=== PATIENT | female | born 1995 | race Caucasian/White ===

== ENCOUNTER 2017-01-16 21:37 | Emergency (ER) | payer OTHER ==
[~2017-01-16] VITALS: Ht 167.6 cm; Wt 104.3 kg
[2017-01-16] MEDS ORDERED: Flovent 220 M220 MCG INH (21:43)
[2017-01-16] MEDS ORDERED: SINGULAIR10 M1 PO (21:44)
[2017-01-16] MEDS ORDERED: FLONASE ALLERG9.9 ML NAS (21:44)
[2017-01-16] MEDS ORDERED: BIRTH CONTROL PO (21:45)
[2017-01-16] MEDS ORDERED: PREDNISONE10 MG PO (23:26)
[2017-01-16] MEDS ORDERED: DUONEB 3 MG/3 ML3 M1 INH (23:26)
[2017-01-16] MEDS ORDERED: NEBULIZER (23:27)
== END 2017-01-16 23:49 | disposition home or self-care (01) ==
LOC: ED 21:37
DX: J45.901 Unspecified asthma with (acute) exacerbation (principal); Z88.1 Allergy status to other antibiotic agents; Z88.2 Allergy status to sulfonamides

== ENCOUNTER 2024-06-04 19:16 | Emergency (ER) | payer BC ==
[~2024-06-04] VITALS: Ht 165.1 cm; Wt 98.4 kg
[~2024-06-04 19:16] MED LIST: BIRTH CONTROL PO; DUONEB 3 MG/3 ML3 M1 INH; FLONASE ALLERG9.9 ML NAS; Flovent 220 M220 MCG INH; NEBULIZER; PREDNISONE10 MG PO; SINGULAIR10 M1 PO
[2024-06-04] MEDS ORDERED: SODIUM CHLORIDE 0.9% 1,000 ML IV ONE (19:40)
[2024-06-04 19:51] LABS: BASO % 0.4 % (0.0-1.0); EOS # 0.5 10*3/uL (0.0-0.4); HEMATOCRIT 41.2 % (37.0-47.0); LYMPH # 1.9 10*3/uL (1.3-4.4); LYMPH % 19.7 % (27.0-41.0); MEAN CELL VOLUME 84.9 fl (81.0-99.0); MEAN CORPUSCULAR HGB 29.1 pg (27.0-31.0); MEAN CORPUSCULAR HGB CONC 34.2 g/dl (33.0-37.0); MEAN PLATELET VOLUME 11.6 fl (9.6-12.3); MONO % 10.1 % (3.0-9.0); NEUT # 6.1 10*3/uL (2.3-7.9); NEUT % 64.4 % (47.0-73.0); PLATELET COUNT AUTOMATED 300 10*3/uL (130-400); RED BLOOD COUNT 4.85 10*6/uL (4.10-5.10); RED CELL DISTRI WIDTH 12.6 % (0-14.5); WHITE BLOOD COUNT 9.5 10*3/uL (4.8-10.8)
[2024-06-04 20:08] LABS: ALKALINE PHOSPHATASE 72 U/L (46-116); BUN 13 mg/dl (9-23); CHLORIDE 105 mmol/L (98-107); LIPASE 30 U/L (12-53); POTASSIUM 3.3 mmol/L (3.4-5.1); SGPT/ALT 50 U/L (5-49); TOTAL PROTEIN 7.2 gm/dL (6.0-8.0)
[2024-06-04] MEDS ORDERED: diphenhydrAMINE hydrochloride 50 MG/ML VIAL IV ONE (20:40)
[2024-06-04] MEDS ORDERED: Metoclopramide Hydrochloride 10 MG/2 ML AMP IV ONE (20:40)
[2024-06-04 20:43] LABS: BILIRUBIN Negative (Negative); BLOOD Negative (Negative); CLARITY Clear (Clear); COLOR Yellow (Yellow); GLUCOSE Negative (Negative); KETONE 2+ (Negative); LEUKO ESTERASE Negative (Negative); NITRITE Negative (Negative); PH 5.5 (4.5-8.0); SPECIFIC GRAVITY >= 1.030 (1.001-1.030)
[2024-06-04 20:51] LABS: URINE AMPHETAMINES Negative (1000ng/ml); URINE BARBITURATES Negative (200ng/ml); URINE BENZODIAZEPINES Negative (200ng/ml); URINE CANNABINOIDS (THC) Negative (50ng/ml); URINE COCAINE Negative (300ng/ml); URINE METHADONE Negative (300ng/ml); URINE OPIATES Negative (300ng/ml); URINE PHENCYCLIDINE Negative (25ng/ml)
[2024-06-04 20:57] LABS: MUCOUS 1+
[2024-06-04] MEDS ORDERED: MAGNESIUM CITRATE 296 ML BOT PO ONE (22:30)
[2024-06-04] MEDS ORDERED: POTASSIUM CHLORIDE 20 MEQ TAB PO ONE (22:35)
[2024-06-04] MEDS ORDERED: MIRALAX POWDER17 G1 PO (22:35)
== END 2024-06-04 23:11 | disposition home or self-care (01) ==
LOC: ED 19:16
PROVIDERS: Internal Medicine
DX: K59.00 Constipation, unspecified (principal); R11.2 Nausea with vomiting, unspecified; R19.7 Diarrhea, unspecified; J45.909 Unspecified asthma, uncomplicated; Z88.1 Allergy status to other antibiotic agents; Z88.2 Allergy status to sulfonamides; Z88.8 Allergy status to other drugs, medicaments and biological substances; Z98.890 Other specified postprocedural states; Z79.899 Other long term (current) drug therapy